=== PATIENT | female | born 2000 | race African-American/Black ===

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

== ENCOUNTER 2019-01-07 19:53 | Emergency (ER) | payer OTHER ==
[2019-01-07 20:33] LABS: Pregnancy Test - Urine (BHCG) Negative (Negative); Pregu Control Background? CLEAR/WHITE (CLR/WHITE); Pregu Control Bar Appear? YES (CONTROL BAR); Specific Gravity 1.029 (1.002-1.036)
[2019-01-07] MEDS ORDERED: Ketorolac Tromethamine 30 MG/ML VIAL ONE (20:38)
[2019-01-07] MEDS ORDERED: Prochlorperazine 10 MG/2 ML VIAL ONE (20:38)
[2019-01-07] MEDS ORDERED: diphenhydrAMINE 50 MG/ML VIAL ONE (20:38)
== END 2019-01-07 21:12 | disposition home or self-care (01) ==
LOC: MADERS 19:53
DX: G43.909 Migraine, unspecified, not intractable, without status migrainosus (principal)
CPT/HCPCS: 81025; 96372; 99284; J0780; J1200; J1885

== ENCOUNTER 2019-06-16 16:01 | Emergency (ER) | payer OTHER ==
[2019-06-16] MEDS ORDERED: Tetracaine 0.5% OPHTH SOLN/PF 4 ML BOT ONE (16:29)
[2019-06-16] MEDS ORDERED: Fluorescein Opthalmic Strip ONE (16:31)
[2019-06-16] MEDS ORDERED: Cyclopentolate 1% Opth Drop 2 ML BOT ONE (16:50)
== END 2019-06-16 17:02 | disposition home or self-care (01) ==
LOC: MADERS 16:01
DX: S05.8X1A Other injuries of right eye and orbit, initial encounter (principal); W50.0XXA Accidental hit or strike by another person, initial encounter
CPT/HCPCS: 99283

== ENCOUNTER 2020-06-23 20:37 | Emergency (ER) | payer OTHER ==
[2020-06-23] MEDS ORDERED: Ondansetron ODT 4 MG TAB ONE (21:50)
== END 2020-06-23 23:14 | disposition home or self-care (01) ==
LOC: MADERS 20:37
DX: T85.898A Other specified complication of other internal prosthetic devices, implants and grafts, initial encounter (principal); R20.2 Paresthesia of skin
CPT/HCPCS: 99283; Q0162

== ENCOUNTER 2020-07-07 16:53 | Emergency (ER) | payer OTHER, SELFPAY ==
[2020-07-07] MEDS ORDERED: Boostrix 0.5 ML (Tdap) VIAL ONE (17:35)
== END 2020-07-07 18:20 | disposition home or self-care (01) ==
LOC: MADERS 16:53
DX: S83.91XA Sprain of unspecified site of right knee, initial encounter (principal); S00.531A Contusion of lip, initial encounter; S70.01XA Contusion of right hip, initial encounter; V49.9XXA Car occupant (driver) (passenger) injured in unspecified traffic accident, initial encounter
CPT/HCPCS: 90471; 90715

== ENCOUNTER 2021-09-06 11:25 | Emergency (ER) | payer OTHER, SELFPAY ==
[2021-09-06 12:22] LABS: Pregnancy Test - Urine (BHCG) Negative (Negative); Pregu Control Background? CLEAR/WHITE (CLR/WHITE); Pregu Control Bar Appear? YES (CONTROL BAR); Specific Gravity 1.024 (1.002-1.036)
[2021-09-06] MEDS ORDERED: Acetaminophen 500 MG TAB ONE (12:41)
== END 2021-09-06 13:11 | disposition home or self-care (01) ==
LOC: MADERS 11:25
DX: R51.9 Headache, unspecified (principal); R50.9 Fever, unspecified; J02.9 Acute pharyngitis, unspecified; Z20.822 Contact with and (suspected) exposure to COVID-19
CPT/HCPCS: 81025; 87804; 94760; U0003; U0005

== ENCOUNTER 2022-09-11 12:18 | Emergency (ER) | payer OTHER ==
[2022-09-11 12:45] LABS: Pregnancy Test - Urine (BHCG) Negative (Negative); Pregu Control Background? CLEAR/WHITE (CLR/WHITE); Pregu Control Bar Appear? YES (CONTROL BAR); Specific Gravity 1.035 (1.002-1.036)
[2022-09-11] MEDS ORDERED: Acetaminophen 500 MG TAB ONE (12:48)
[2022-09-11] MEDS ORDERED: Ondansetron ODT 4 MG TAB ONE (12:48)
[2022-09-11 13:01] LABS: MONO NEGATIVE CONTROL ZONE White (Negative) (White); MONO POSITIVE CONTROL Pink Line (Positive) (PINK/RED); Mononucleosis NEGATIVE (NEGATIVE)
== END 2022-09-11 13:34 | disposition home or self-care (01) ==
LOC: MADERS 12:18
DX: B34.9 Viral infection, unspecified (principal); Z20.822 Contact with and (suspected) exposure to COVID-19
CPT/HCPCS: 81025; 86308; 87081; 87430; 87635; 87804; 99284; Q0162